=== PATIENT | female | born 1995 | race Caucasian/White ===

== ENCOUNTER 2022-12-20 23:14 | Emergency (ER) | payer OTHER, SELFPAY ==
[2022-12-20 23:32] VITALS: BP 105/60; PULSE 60; RESP 20; TEMP 36.7; O2SAT 97; BMI 29.1
--- NOTE | 2022-12-20 23:55 | ED_ITS ---
HPI - Head Injury General Chief complaint: Head Injury Stated complaint: head injury Time Seen by Provider: 12/20/22 23:24 Source: patient Mode of arrival: walk-in Limitations: no limitations History of Present Illness HPI Narrative: patient was cleaning and accidentally knocked a nearby shelf. Numerous items - what she described to me as knick knacks fell off the shelf and one of the struck her in the back of the head, causing the scalp to bleed. The significant other gave the patient aspirin - that is all that we have - and applied a bandage to the wound. Patient felt nauseous and immediately vomited but no vomiting since. No seizure activity. No neck or back pain or injury. Related Data Home Medications Medication Instructions Recorded Confirmed No Known Home Medications 12/20/22 12/20/22 Allergies Allergy/AdvReac Type Severity Reaction Status Date / Time Penicillins Allergy Unknown Verified 12/20/22 23:39 [facility] Social History Smoking status: Never smoker Exam Narrative Exam Narrative: Nurses note and vital signs reviewed and patient is not hypoxic. afebrile General: The patient appears well and in no apparent distress. Patient is resting comfortably on cart. GCS = 15. Skin: Warm, dry, no pallor noted. Head: Linear 2.5cm laceration to the occipital scalp in an oblique plane - the wound edges are gaping by 2mm. No bony step-off noted. Remainder of the scalp and the face are normocephalic, atraumatic Neck: Supple, trachea mid-line. Full ROM and no cervical spinal tenderness. Eyes: PERRLA, EOMI Cardiovascular: normal peripheral perfusion Respiratory: Patient is in no distress, no accessory muscle use, no wheezing Back: No thoracic or lumbar tenderness to palpation. Neurological: A&O x4, normal equal job setter strength, normal finger to nose, normal speech, normal coordination, normal motor, normal sensory. Psychiatric: Cooperative Constitutional Vital Signs, click to edit/add: Last Vital Signs Temp 98.1 F 12/20/22 23:32 Pulse 60 12/20/22 23:32 Resp 20 12/20/22 23:32 BP 105/60 12/20/22 23:32 Pulse Ox 97 12/20/22 23:32 O2 Del Method Room Air 12/21/22 00:13 Course Vital Signs Vital signs: Vital Signs Temperature 98.1 F 12/20/22 23:32 Pulse Rate 60 12/20/22 23:32 Respiratory Rate 20 12/20/22 23:32 Blood Pressure 105/60 12/20/22 23:32 Pulse Oximetry 97 12/20/22 23:32 Oxygen Delivery Method Room Air 12/20/22 23:32 Temperature 98.1 F 12/20/22 23:32 Pulse Rate 60 12/20/22 23:32 Respiratory Rate 20 12/20/22 23:32 Blood Pressure 105/60 12/20/22 23:32 Pulse Oximetry 97 12/20/22 23:32 Oxygen Delivery Method Room Air 12/21/22 00:13 MDM - Head Injury MDM Narrative Medical decision making narrative: Patient does not meet criteria for imaging of the head/brain. The wound was cleaned and closed with aden - see my note above. The patient's significant other had told me that she had taken aspirin but after I ordered acetaminophen and the ED nurse tried to bring it, then the patient's signif other recalled it was actually acetaminophen he gave her. Patient discharged home with information regarding head injury and laceration repair. [place] will need to be removed in 7-10 days. Discharge Plan Discharge Chief Complaint: Head Injury Clinical Impression: Closed head injury, Laceration of scalp Patient Disposition: Home, Self-Care Time of Disposition Decision: 00:45 Prescriptions / Home Meds: No Action No Known Home Medications Instructions: Laceration (ED), Head Injury (ED) Stand Alone Forms: Portal Instructions Referrals: Physician,Non-Staff, MD [Primary Care Provider] - 1 week Procedures ED Laceration Laceration Laceration 1: Additional comments: Laceration repair: All of the procedure was done under sterile conditions. Wound cleansed with betadine and anesthetized with local injection of approximately 3.5mL of lidocaine 1% with epinephrine. The wound was irrigated copiously with sterile normal saline. The wound was explored to depth and found to be free of foreign material. The laceration wound edges were well- approximated and did not require revision. Wound closed with 10 sterile aden in simple interrupted fashion. Patient tolerated the procedure well. The patient was neurovascularly intact post-repair. Topical bacitracin applied to the laceration and it was dressed with a dry sterile dressing. The patient will need to follow-up in the next 7-10 days for removal.
[2022-12-21] MEDS: LIDOCAINE HCL 1%-EPINEPHRINE 1:100,000 10 ML MDV INJ (00:27)
== END 2022-12-21 01:02 | disposition home or self-care (01) ==
PROVIDERS: Emergency Provider Emergency Medicine
DX: S01.01XA Laceration without foreign body of scalp, initial encounter (principal); S09.8XXA Other specified injuries of head, initial encounter; W20.8XXA Other cause of strike by thrown, projected or falling object, initial encounter
CPT/HCPCS: 12001; 99284